=== PATIENT | male | born 1970 | race Caucasian/White ===

== ENCOUNTER → 2024-07-01 19:00 | Outpatient (BNV) | payer OTHER, SELFPAY | PROVIDERS: PCP Family Medicine; Visit Provider Psychiatry & Neurology Neurology | DX: R06.83 Snoring (principal) | CPT/HCPCS: 95810 ==

== ENCOUNTER → 2024-07-01 20:30 | Outpatient (REF) | payer OTHER, SELFPAY | LOC: HO.SL 20:30 | PROVIDERS: PCP Family Medicine; Visit Provider Internal Medicine Endocrinology, Diabetes & Metabolism | DX: R06.83 Snoring (principal) | CPT/HCPCS: 95810 ==

== ENCOUNTER 2024-12-27 11:56 | Inpatient (IN) | payer OTHER, SELFPAY ==
[2024-12-27] VITALS (7 sets, daily range): BP systolic 108–134; BP diastolic 70–81; PULSE 22–108; RESP 18–23; TEMP 36.8; O2SAT 94–98; BMI 30.9
--- NOTE | ~2024-12-27 | CT_ITS ---
CLINICAL HISTORY: periumbilical RLQ pain, VOM DIARRHEA CT ABDOMEN AND PELVIS WITHOUT CONTRAST Comparison: None Findings: Atelectatic changes. No basilar consolidation or pleural effusion. No hydronephrosis or obstructing calculus. Multiple bilateral intrarenal calculi measure up to 6 mm on the right and 2 mm on the left. No acute abnormalities in the remaining unenhanced solid organs, gallbladder or abdominal aorta. No bowel obstruction, pneumoperitoneum, or pneumatosis. Mild fluid distention of multiple small bowel loops with no abrupt transition point. No ascites or significant mesenteric edema. Multiple diverticula in the descending colon and sigmoid with no significant paracolic edema. There are sigmoid anastomotic sutures. The appendix is identified. No acute appendicitis. Small fat containing umbilical and bilateral inguinal hernias. Prostatic calcifications. Mild perivesical edema. No acute fracture. IMPRESSION: 1. Small bowel ileus pattern. No obstruction or ascites. 2. No acute appendicitis. 3. No acute obstructive uropathy. Nonobstructing bilateral nephrolithiasis, right greater than left. 4. Diverticulosis coli with no evidence for acute diverticulitis. 5. Mild localized perivesical edema for which the possibility of mild/early cystitis is raised. Recommend clinical correlation. This document has been electronically signed by: Radhika Peña DO on 12/27/2024 14:48:28
--- NOTE | ~2024-12-27 | US_ITS ---
CLINICAL HISTORY: RUQ pain, N V D US ABDOMEN LIMITED Comparison: CT/NV/SR - CT ABDOMEN PELVIS WO IV CON - 12/27/24 13:21 EDT Findings: The pancreas is obscured by bowel gas precluding evaluation. No measurable hepatic lesion. There is no intrahepatic bile duct dilatation. Common bile duct measures 4.5 mm. The gallbladder is normal. There is no sonographic Martinez sign. The main portal vein is antegrade. No ascites. IMPRESSION: 1. No cholelithiasis or acute cholecystitis. 2. No significant biliary ductal dilatation. This document has been electronically signed by: Radhika Peña DO on 12/27/2024 16:07:18
--- NOTE | 2024-12-27 12:19 | ED_ITS ---
HPI - General Adult General Chief complaint: Abdominal Pain Stated complaint: vomitting Time Seen by Provider: 12/27/24 12:42 Source: patient Mode of arrival: ambulatory Limitations: no limitations History of Present Illness ED Provider: ZOE FLOR PA-C HPI narrative: 54-year-old male with PMHX significant for diverticulitis w/ abscess s/p colectomy in 2018 at [facility] presents to the ED today for evaluation of nausea, vomiting, diarrhea, and periumbilical abdominal cramping which began around 0345 this morning. He reports eating a turkey dinner at a restaurant last night with his partner. They both had different meals. He states that while eating his dinner, he began to feel unwell with abdominal cramps. He awoke around 0345 with further cramping. Reports approx 6 episodes of nonbloody vomiting and diarrhea. His partner denies any similar symptoms. Denies recent abx. He admits to recent trip to [facility]. He returned on 12/17/24 (11 days ago). Reports drinking the water while he was there. [place] ill towards the end of his trip however that shortly resolved. Denies chest pain, sob, palpitations, hemoptysis, calf pain/swelling. He tells me he has no other medical conditions. Denies taking any medications on a daily basis. Related Data Allergies Allergy/AdvReac Type Severity Reaction Status Date / Time Iodinated Contrast Media Allergy Anaphylaxis Verified 12/27/24 12:17 [Contrast Dye] meperidine [From Demerol] Allergy Vomiting Verified 12/27/24 12:17 Review of Systems 2 Review of Systems: Constitutional: No fever, chills, fatigue, night sweats, weight changes ENT/Mouth: No ear pain, hearing loss, nasal congestion, sinus pain, rhinorrhea, sore throat Eyes: No eye pain, swelling, redness, vision changes, discharge Cardio: No chest pain, palpitations, COP[place], orthopnea, peripheral edema Pulm: No SOB, cough, sputum, wheezing, dyspnea, hemoptysis GI: No hematemesis, constipation, hematochezia, melena, +N/V/D, +abd cramping : No irregular bleeding, dysuria, frequency, urgency, hesitancy, hematuria, flank pain, urinary flow changes, urinary incontinence or retention MSK: No back pain, neck pain, joint pain, myalgias Skin: No lesions, rashes Neuro: No weakness, numbness, paresthesias, LOC, dizziness, headache Psych: No anxiety/panic, depression, SI/HI, AH/VH All other systems reviewed and are negative. [facility] Past Medical History Attestation statement: The following information was validated with the patient. Source: old records reviewed and nursing notes reviewed Social History Social History Smoked in Last 30 Days: No Use of substances other than those prescribed or required for medical reasons: No Advance Directives: No Advance Directives Information Provided: Yes Do you have a plan to hurt others: No Plan Physical Exam ED Vital Signs: Vital Signs - 24 hr 12/27/24 12:14 12/27/24 12:47 12/27/24 13:07 Temperature 98.2 F Pulse Rate 108 H 22 L Respiratory Rate 20 18 20 Blood Pressure 134/77 122/81 Pulse Oximetry 97 95 Oxygen Delivery Method Room Air Room Air 12/27/24 15:45 12/27/24 16:07 12/27/24 16:23 Temperature Pulse Rate 102 H 105 H 102 H Respiratory Rate 23 H 19 20 Blood Pressure 112/73 108/72 122/70 Pulse Oximetry 94 Oxygen Delivery Method Room Air 12/27/24 17:26 Temperature Pulse Rate 85 Respiratory Rate 18 Blood Pressure 122/73 Pulse Oximetry 98 Oxygen Delivery Method Room Air BMI result Body Mass Index 30.9 tachycardic, afebrile General: Well appearing, in no acute distress. Skin: Warm, dry, intact. No rashes or lesions. Head: Normocephalic, atraumatic. EENT: Hearing is intact b/l. Conjunctiva clear. PERRLA. EOM intact. Moist mucous membranes.? Cardiac: Chest wall symmetric. RRR Lungs: Normal respiratory effort without accessory muscle use. CTA bilaterally. Abdomen: Soft, nondistended, diffusely tender to palpation without rebound or guarding. Normoactive bowel sounds x4. No CVAT bilaterally. Back: No midline spinous or paraspinal tenderness. No step off deformity. Ext: Upper and lower extremities atraumatic, without tenderness, deformity, swelling or erythema Neuro: AOx3. Normal speech. Ambulating with steady gait. Course Course Course Narrative: RME: 54 yold male presens to the ED for abdominal pain, nausea, diarrhea, and vomitting since last night. Patient states going out to least last night and states other family members having similiar symptoms. labs ordered Reevaluation(s) Reevaluation #1: 0021 -- CBC with leukocytosis to 21.5 with left shift. H&H stable. Chemistry without acute electrolyte abnormality requiring intervention. No RITCHIE. Random glucose 205. total bili elevated to 1.3. liver enzymes wnl. Negative COVID, flu, RSV. > given elevated white count, tachycardia and concern for infection - sepsis protocol initiated. lactic/blood cultres ordered. broad spectrum zosyn ordered. IVF running. > patient has allergy to contrast dye - anaphylactic. will order dry CT a/p to assess for intra-abdominal pathology. > medicated w/ morphine and zofran 1426 -- received critical lactic of 2.3. patient not on metformin. treated with 2 L of IV fluids. does not meet criteria for bolus. > imaging pending. 1700 -- urinalysis without infection. CTA/P showing small bowel ileus pattern without obstruction or ascites. No acute appendicitis. Bilateral nephrolithiasis, nonobstructing. Diverticulosis coli without evidence of acute diverticulitis. Mild localized. Vesicular edema, cystitis unlikely given negative urinalysis. Imaging limited due to lack of contrast. RUQ abd ultrasound unremarkable. no evidence of acute lalitha. > given elevated white count and symptoms, plan to admit for continued IV antibiotics. discussed w/ hospitalist Dr. Meza. patient agreeable. admisson pending. stool cultures pending. Medications Administered Discontinued Medications Generic Name Dose Route Start Last Admin Trade Name Freq PRN Reason Stop Dose Admin Sodium Chloride 1,000 mls @ 999 mls/hr 12/27/24 12:45 12/27/24 14:06 Ns IV 12/27/24 13:45 Infused .Q1H1M ANTONIO Infusion Piperacillin Sod/Tazobactam 50 mls @ 100 mls/hr 12/27/24 13:37 12/27/24 14:33 Sod 3.375 gm/ Sodium Chloride IV 12/27/24 14:06 Infused ONCE ONE Infusion Sodium Chloride 1,000 mls @ 999 mls/hr 12/27/24 14:00 12/27/24 16:04 Ns IV 12/27/24 15:00 Infused .Q1H1M ANTONIO Infusion Morphine Sulfate 4 mg 12/27/24 12:57 12/27/24 13:07 Morphine Sulfate 4 Mg/Ml Cartridge IVPUSH 12/27/24 12:58 4 mg ONCE ONE Administration Protocol Ondansetron HCl 4 mg 12/27/24 12:57 12/27/24 13:07 Ondansetron Hcl 4 Mg/2 Ml Vial IVPUSH 12/27/24 12:58 4 mg ONCE ONE Administration Medical Decision Making Medical Decision Making [facility] Narrative: 54-year-old male with PMHX significant for diverticulitis w/ abscess s/p colectomy in 2018 at [facility] presents to the ED today for evaluation of nausea, vomiting, diarrhea, and periumbilical abdominal cramping which began around 0345 this morning. patient initially tachycardic to 108. HR now normal.on exam, abdomen is soft, nondistended, diffusely tender to palpation without rebound or guarding. Normoactive bowel sounds x4. No CVAT bilaterally. Differential diagnosis includes anemia, electrolyte abnormality, dehydration, viral syndrome, biliary colic, renal colic, nephrolithiasis, gastroenteritis, colitis, diverticulosis, diverticulitis. Abdominal exam without peritoneal signs. No evidence of acute abdomen at this time. Well appearing. Moderate suspicion for acute hepatobiliary disease (including acute cholecystitis). Less likely to represent acute pancreatitis, PUD (including perforation), acute infectious processes (pneumonia, hepatitis, pyelonephritis), atypical appendicitis, vascular catastrophe, bowel obstruction or viscus perforation. Plan: labs, UA, stool studies, viral swabs, pain control, CT A/P, serial reassessment Differential Diagnosis Differential Diagnoses: The differential diagnosis associated with the presentation includes as above. Admission/Observation not indicated. Consult Healthcare Provider Management of the patient was discussed with: Hospitalist (dr. meza) Lab Data [facility] Lab Attestation statement: I reviewed the patient's lab results. as above. 12/27/24 12:32 12/27/24 12:32 Labs: Lab Results 12/27/24 12/27/24 12/27/24 Range/Units 12:32 13:48 14:06 WBC 21.5 H (4.8-10.8) X10*3/uL RBC 5.84 H (4.60-5.80) X10*6/uL Hgb 18.5 H (14.0-18.0) g/dl Hct 51.2 (42.0-52.0) % MCV 87.7 (80.0-98.0) fL MCH 31.7 (27.0-33.0) pg MCHC 36.1 H (31.0-36.0) g/dl RDW 13.0 (11.0-16.0) % Plt Count 215 (160-400) X10*3/uL MPV 10.2 (9.4-12.4) fL Immature Gran % (Auto) 0.5 H (0.0-0.4) % Neut % (Auto) 91.1 H (45-73) % Lymph % (Auto) 2.0 L (20-40) % [place] % (Auto) 6.1 (2-11) % Eos % (Auto) 0.1 (0-4) % Baso % (Auto) 0.2 (0-2) % Lymph # (Auto) 0.4 L (1.2-4.9) X10*3/uL [place]verse # (Auto) 1.3 H (0.1-1.2) X10*3/uL Eos # (Auto) 0.0 (0.0-0.4) X10*3/uL Baso # (Auto) 0.1 (0.0-0.2) X10*3/uL Abs Immat Gran (auto) 0.11 H (0.00-0.03) X10*3/uL Absolute Neuts (auto) 19.6 H (2.0-8.3) x10*3/uL Absolute Nucleated RBC 0.000 (0.0-0.012) X10*3/uL Nucleated RBC % (auto) 0.0 (0.0-0.2) /100WBC Smear Tech's Comments VERIFIED Sodium 141 (135-145) mmol/L Potassium 4.5 (3.3-5.1) mmol/L Chloride 105 (96-108) mmol/L Carbon Dioxide 23 (22-29) mmol/L Anion Gap 18 (12-20) BUN 15 (9-16) mg/dL Creatinine 1.30 (0.5-1.4) mg/dL Estim Creat Clear Calc 70.8 Estimated GFR 58 Random Glucose 205 H (60-115) mg/dL Lactic Acid 2.3 H* (0.5-2.0) mmol/L Lactic Acid F/U @ 2Hr (0.5-2.0) mmol/L Calcium 9.9 (8.4-10.2) mg/dL Total Bilirubin 1.3 H (0.0-1.0) mg/dL Direct Bilirubin 0.5 (0.0-0.5) mg/dL AST 36 (5-37) U/L ALT 59 H (0-40) U/L Alkaline Phosphatase 82 (39-117) U/L Total Protein 8.3 H (6.5-8.0) g/dL Albumin 4.9 (3.5-5.0) g/dL Lipase 21 (8-78) U/L Urine Color Urine Appearance Urine pH (5.0-9.0) Ur Specific [place] (1.005-1.025) Urine Protein (Neg-Trace) mg/dL Urine Glucose (UA) (Negative) mg/dL Urine Ketones (Negative) mg/dL Urine Blood (Negative) Urine Nitrite (Negative) Ur Leukocyte Esterase (Negative) Urine Opiates Screen (Not Detect) Ur Buprenorphine Scrn (Not Detect) ng/mL Ur Oxycodone Screen (Not Detect) ng/mL Urine Methadone Screen (Not Detect) ng/mL Urine Fentanyl Screen (Not Detect) Ur Barbiturates Screen (Not Detect) Ur Phencyclidine Scrn (Not Detect) Ur Amphetamines Screen (Not Detect) U Benzodiazepines Scrn (Not Detect) Urine Cocaine Screen (Not Detect) U Marijuana (THC) Screen (Not Detect) Influenza Type A (PCR) NEGATIVE (Negative) Influenza Type B (PCR) NEGATIVE (Negative) RSV RNA Qual (PCR) NEGATIVE (Negative) SARS-CoV-2 RNA (RT-PCR) NEGATIVE (Negative) 12/27/24 12/27/24 Range/Units 15:47 16:08 WBC (4.8-10.8) X10*3/uL RBC (4.60-5.80) X10*6/uL Hgb (14.0-18.0) g/dl Hct (42.0-52.0) % MCV (80.0-98.0) fL MCH (27.0-33.0) pg MCHC (31.0-36.0) g/dl RDW (11.0-16.0) % Plt Count (160-400) X10*3/uL MPV (9.4-12.4) fL Immature Gran % (Auto) (0.0-0.4) % Neut % (Auto) (45-73) % Lymph % (Auto) (20-40) % Traverse % (Auto) (2-11) % Eos % (Auto) (0-4) % Baso % (Auto) (0-2) % Lymph # (Auto) (1.2-4.9) X10*3/uL [place]verse # (Auto) (0.1-1.2) X10*3/uL Eos # (Auto) (0.0-0.4) X10*3/uL Baso # (Auto) (0.0-0.2) X10*3/uL Abs Immat Gran (auto) (0.00-0.03) X10*3/uL Absolute Neuts (auto) (2.0-8.3) x10*3/uL Absolute Nucleated RBC (0.0-0.012) X10*3/uL Nucleated RBC % (auto) (0.0-0.2) /100WBC Smear Tech's Comments Sodium (135-145) mmol/L Potassium (3.3-5.1) mmol/L Chloride (96-108) mmol/L Carbon Dioxide (22-29) mmol/L Anion Gap (12-20) BUN (9-16) mg/dL Creatinine (0.5-1.4) mg/dL Estim Creat Clear Calc Estimated GFR Random Glucose (60-115) mg/dL Lactic Acid (0.5-2.0) mmol/L Lactic Acid F/U @ 2Hr 2.3 H* (0.5-2.0) mmol/L Calcium (8.4-10.2) mg/dL Total Bilirubin (0.0-1.0) mg/dL Direct Bilirubin (0.0-0.5) mg/dL AST (5-37) U/L ALT (0-40) U/L Alkaline Phosphatase (39-117) U/L Total Protein (6.5-8.0) g/dL Albumin (3.5-5.0) g/dL Lipase (8-78) U/L Urine Color Yellow Urine Appearance Clear Urine pH 8.0 (5.0-9.0) Ur Specific [place] 1.025 (1.005-1.025) Urine Protein Trace (Neg-Trace) mg/dL Urine Glucose (UA) Negative (Negative) mg/dL Urine Ketones 15 (Negative) mg/dL Urine Blood Negative (Negative) Urine Nitrite Negative (Negative) Ur Leukocyte Esterase Negative (Negative) Urine Opiates Screen POSITIVE H (Not Detect) Ur Buprenorphine Scrn Not Detected (Not Detect) ng/mL Ur Oxycodone Screen Not Detected (Not Detect) ng/mL Urine Methadone Screen Not Detected (Not Detect) ng/mL Urine Fentanyl Screen Not Detected (Not Detect) Ur Barbiturates Screen Not Detected (Not Detect) Ur Phencyclidine Scrn Not Detected (Not Detect) Ur Amphetamines Screen Not Detected (Not Detect) U Benzodiazepines Scrn Not Detected (Not Detect) Urine Cocaine Screen Not Detected (Not Detect) U Marijuana (THC) Screen Not Detected (Not Detect) Influenza Type A (PCR) (Negative) Influenza Type B (PCR) (Negative) RSV RNA Qual (PCR) (Negative) SARS-CoV-2 RNA (RT-PCR) (Negative) Independent Interpretation I performed an independent interpretation of an: CT Scan Interpretation: CT A/P without bowel obstruction RUQ abd ultrasound without gall stones Radiology Impression Discussion of test interpretation with radiology: I have reviewed the radiologist's reading. Radiologist Impression: Date of Service: 12/27/24 Procedure(s): US abdomen limited Accession Number(s): [id number] cc: MAI FULLER MD; Zoe Flor~ CLINICAL HISTORY: RUQ pain, N V D US ABDOMEN LIMITED Comparison: CT/NV/SR - CT ABDOMEN PELVIS WO IV CON - 12/27/24 13:21 EDT Findings: The pancreas is obscured by bowel gas precluding evaluation. No measurable hepatic lesion. There is no intrahepatic bile duct dilatation. Common bile duct measures 4.5 mm. The gallbladder is normal. There is no sonographic Martinez sign. The main portal vein is antegrade. No ascites. IMPRESSION: 1. No cholelithiasis or acute cholecystitis. 2. No significant biliary ductal dilatation. This document has been electronically signed by: Radhika Peña DO on 12/27/2024 16:07:18 Procedure(s): CT abdomen pelvis wo IV con Accession Number(s): [id number] cc: MAI FULLER MD; Zoe Flor~ Report Number: [id number]: Total DLP = 607.00 mGy-cm CLINICAL HISTORY: periumbilical RLQ pain, VOM DIARRHEA CT ABDOMEN AND PELVIS WITHOUT CONTRAST Comparison: None Findings: Atelectatic changes. No basilar consolidation or pleural effusion. No hydronephrosis or obstructing calculus. Multiple bilateral intrarenal calculi measure up to 6 mm on the right and 2 mm on the left. No acute abnormalities in the remaining unenhanced solid organs, gallbladder or abdominal aorta. No bowel obstruction, pneumoperitoneum, or pneumatosis. Mild fluid distention of multiple small bowel loops with no abrupt transition point. No ascites or significant mesenteric edema. Multiple diverticula in the descending colon and sigmoid with no significant paracolic edema. There are sigmoid anastomotic sutures. The appendix is identified. No acute appendicitis. Small fat containing umbilical and bilateral inguinal hernias. Prostatic calcifications. Mild perivesical edema. No acute fracture. IMPRESSION: 1. Small bowel ileus pattern. No obstruction or ascites. 2. No acute appendicitis. 3. No acute obstructive uropathy. Nonobstructing bilateral nephrolithiasis, right greater than left. 4. Diverticulosis coli with no evidence for acute diverticulitis. 5. Mild localized perivesical edema for which the possibility of mild/early cystitis is raised. Recommend clinical correlation. This document has been electronically signed by: Radhika Peña DO on 12/27/2024 14:48:28 Independent Historian Clinical information obtained from an independent historian. History obtained from or confirmed by: Spouse Prescription Management I considered prescription management with: Pain Medication and Antibiotic Social Determinants Patient?s care significantly limited by Social Determinants of Health including: Other Social Determinant of Health Critical Care Time Critical Care Time Critical Care Time: Yes Total Critical Care Time: 35 Attestation: Critical care time in the amount of 35 minutes has been provided to the patient in terms of direct patient care, frequent reevaluation on IV morphine, consultation with hospitalist, review and interpretation of medical data and results, and management of potentially life-threatening conditions. This is all outside of any medical procedures. Discharge Plan Discharge Clinical Impression: Colitis, Nausea & vomiting Patient Disposition: Admitted As Inpatient Print Language: Cymraes
[2024-12-27 12:38] LABS: Basophils Absolute Auto 0.1 X10*3/uL (0.0-0.2); Basophils Percent Auto 0.2 % (0-2); Eosinophils Percent Auto 0.1 % (0-4); Hematocrit 51.2 % (42.0-52.0); Hemoglobin 18.5 g/dl (14.0-18.0); Imm Gran Abs Auto 0.11 X10*3/uL (0.00-0.03); Imm Gran Pct Auto 0.5 % (0.0-0.4); Lymphocytes Absolute Auto 0.4 X10*3/uL (1.2-4.9); MANUAL DIFF FLAG SCAN; Mean Corpuscular HGB Conc 36.1 g/dl (31.0-36.0); Mean Corpuscular Hemoglobin 31.7 pg (27.0-33.0); Mean Corpuscular Volume 87.7 fL (80.0-98.0); Mean Platelet Volume 10.2 fL (9.4-12.4); Monocytes Absolute Auto 1.3 X10*3/uL (0.1-1.2); Monocytes Percent Auto 6.1 % (2-11); Neutrophils Absolute Auto 19.6 x10*3/uL (2.0-8.3); Neutrophils Percent Auto 91.1 % (45-73); Platelet Count 215 X10*3/uL (160-400); Red Blood Count 5.84 X10*6/uL (4.60-5.80); SCAN SMEAR FLAG 1; White Blood Count 21.5 X10*3/uL (4.8-10.8)
[2024-12-27] MEDS: 0.9 % Sodium Chloride 1,000 ML 999 ML IV ×2 (12:46→14:03)
[2024-12-27 12:52] LABS: Alanine Aminotransferase 59 U/L (0-40); Albumin Level 4.9 g/dL (3.5-5.0); Alkaline Phosphatase 82 U/L (39-117); Anion Gap 18 (12-20); Aspartate Amino Transferase 36 U/L (5-37); Bilirubin Total 1.3 mg/dL (0.0-1.0); Blood Urea Nitrogen 15 mg/dL (9-16); Calcium 9.9 mg/dL (8.4-10.2); Carbon Dioxide 23 mmol/L (22-29); Chloride 105 mmol/L (96-108); Creatinine Clr Calc Pharmacy 70.8; Estimated Glomerular Filt Rate 58; Glucose Random 205 mg/dL (60-115); Lipase 21 U/L (8-78); Potassium 4.5 mmol/L (3.3-5.1); Sodium 141 mmol/L (135-145); Total Protein 8.3 g/dL (6.5-8.0)
[2024-12-27 13:04] LABS: SLIDE REVIEW VERIFIED
[2024-12-27] MEDS: Morphine Sulfate 4 MG/ML CARTRIDGE IVPUSH (13:07)
[2024-12-27] MEDS: ondansetron HCL 4 MG/2 ML VIAL IVPUSH (13:07)
[2024-12-27 14:01] LABS: Bilirubin Direct 0.5 mg/dL (0.0-0.5)
[2024-12-27] MEDS: Piperacillin Sodium/Tazobactam 3.375 GM in 0.9 % Sodium Chloride 50 ML IV ×2 (14:03→21:06)
[2024-12-27 14:18] LABS: Lactic Acid 2.3 mmol/L (0.5-2.0)
--- NOTE | 2024-12-27 14:25 | PC.NURSE ---
Pt comes to ED today for severe n/v/d starting this early this AM. Pt is A&Ox3, VSS, afebrile. Skin is warm and dry Breaths and speech are even and unlabored. Sepsis protocol called @ 1337 1st set of blood cultures and lactic acid obtained without complication. 2nd set of culture difficult to acquire: 3 failed straight sticks d/t clotting at stick site. This RN was required to place new/additional IV access and obtained 2nd set of culture. IV Abx hung within 30 minutes per protocol. Per ED provider, Pts lactic does not meet sepsis protocol criteria for IVF bolus however 1L IVF ordered at 1400 (prior to lactic results) and hung as ordered. Will obtain 2 BPs following completion of IVF.
[2024-12-27 14:49] LABS: Influenza A PCR NEGATIVE (Negative); Influenza B PCR NEGATIVE (Negative); Resp Syncy Virus RNA Qual PCR NEGATIVE (Negative); SARS COV2 PCR INHOUSE NEGATIVE (Negative)
[2024-12-27 15:57] LABS: Reflex Lactate? Lactic Acid Added
[2024-12-27 16:07] LABS: Appearance Urine Clear; Color Urine Yellow; Glucose Urine UA Negative (Negative); Leukocyte Esterase Urine Negative (Negative); Nitrite Urine Negative (Negative); Specific Gravity - Urine 1.025 (1.005-1.025); Urine Blood Negative (Negative); Urine Ketones 15 mg/dL (Negative); Urine Protein Trace mg/dL (Neg-Trace)
[2024-12-27 16:18] LABS: Amphetamine Screen Urine Not Detected (Not Detect); Barbiturates, Urine Not Detected (Not Detect); Benzodiazepines Screen Urine Not Detected (Not Detect); Buprenorphine Scr Not Detected (Not Detect); Cannabinoid Screen Urine Not Detected (Not Detect); Cocaine Screen Urine Not Detected (Not Detect); Fentanyl, urine Not Detected (Not Detect); Methadone Screen, Urine Not Detected (Not Detect); Opiate Screen Urine POSITIVE (Not Detect); Oxycodone Screen Urine Not Detected (Not Detect); Phencyclidine Screen Urine Not Detected (Not Detect)
--- NOTE | 2024-12-27 16:24 | PC.NURSE ---
Sepsis worksheet submitted to [employer].
[2024-12-27 16:34] LABS: ~Lactic Acid-LAB USE ONLY 2.3 mmol/L (0.5-2.0)
--- NOTE | 2024-12-27 17:19 | P.HPHOSP_ITS ---
History of Present Illness Date of Service: 12/27/24 Attending physician on admission: Marcelino Meza Chief Complaint: N/V/D/abdominal pain Pt is a 54-year-old male with a PMH significant for diverticulitis with abscess s/p colectomy in 2018 not on home meds who presents to the ED with?nausea, vomiting, diarrhea, and abdominal pain since early this morning. Pt reports was awoken from sleep at approximately 03:00 and had intractable nausea, vomiting, and diarrhea. At sharp and stabbing abdominal pain mostly across the top in a band. Pt attempted to drink fluids, but could not keep anything down. Reports went out to last night in order to turkey dinner. During dinner pt notes stomach began feeling crampy and upset. Recently returned 10 days ago from a trip to the [place] where he drank the water. On his last day had mild diarrhea and his stomach was upset on the plane ride home, but symptoms since resolved without any intervention. Not recently IV antibiotics. States [id number] had diarrhea a few days ago, but pt reports only minimal contact with her. Denies chest pain/pressure, palpitations. Some chills, but no fever. Denies shortness or breath, difficulty breathing, or cough. No hemoptysis, hematemesis, hematochezia, In the ED pt was tachycardic up to 108 and tachypneic up to 23. Labs were significant for leukocytosis 21.5, initial lactic acid 2.3 with repeat 2.3, T bili 1.3, and ALT 59. Stable H&H. No significant electrolyte abnormalities. Creatinine WNL at 1.30 (baseline unknown). UA negative for UTI. Tox screen positive for opiates. Tested negative for flu COVID, RSV. CT of abdomen/pelvis found small bowel ileus pattern without obstruction or ascites. Abdominal ultrasound negative for cholelithiasis or acute cholecystitis, and no significant biliary ductal dilation. Pt was treated with IVF, morphine, ondansetron, and Zosyn. Pt will be admitted to the hospital for treatment and further evaluation of possible colitis meeting SIRS criteria. Review of Systems 2 Review of Systems: Negative except for that which is stated in the HPI. [facility] Medical History Diverticulosis Diverticulitis Surgical History S/P colectomy Social History Smoked in Last 30 Days: No Use of substances other than those prescribed or required for medical reasons: No Advance Directives: No Advance Directives Information Provided: Yes Do you have a plan to hurt others: No Plan Meds Allergies Allergy/AdvReac Type Severity Reaction Status Date / Time Iodinated Contrast Media Allergy Anaphylaxis Verified 12/27/24 12:17 [Contrast Dye] meperidine [From Demerol] Allergy Vomiting Verified 12/27/24 12:17 Physical Exam 2 Vital Signs and Narrative: Vital Signs: Last Vital Signs Temp 98.2 F 12/27/24 12:14 Pulse 102 H 12/27/24 16:23 Resp 20 12/27/24 16:23 BP 122/70 12/27/24 16:23 Pulse Ox 94 12/27/24 15:45 O2 Del Method Room Air 12/27/24 15:45 BMI result Body Mass Index 30.9 General: AOx3, no acute distress Resp: CTA bilaterally CVS: S1, S2, RRR GI: +BS, NT, no distention Skin: Warm, dry Neuro: Cranial nerves II-XII grossly intact bilaterally. Motor grossly intact bilaterally Extremities: No edema Psych: Appropriate affect Results Labs 12/27/24 12:32 12/27/24 12:32 Labs: Laboratory Results - last 24 hr 12/27/24 12/27/24 12/27/24 12:32 13:48 14:06 MCV 87.7 MCH 31.7 MCHC 36.1 H RDW 13.0 Plt Count 215 MPV 10.2 Immature Gran % (Auto) 0.5 H Neut % (Auto) 91.1 H Lymph % (Auto) 2.0 L Banks % (Auto) 6.1 Eos % (Auto) 0.1 Baso % (Auto) 0.2 Lymph # (Auto) 0.4 L Banks # (Auto) 1.3 H Eos # (Auto) 0.0 Baso # (Auto) 0.1 Abs Immat Gran (auto) 0.11 H Absolute Neuts (auto) 19.6 H Absolute Nucleated RBC 0.000 Nucleated RBC % (auto) 0.0 Smear Tech's Comments VERIFIED Anion Gap 18 Estim Creat Clear Calc 70.8 Estimated GFR 58 Random Glucose 205 H Lactic Acid 2.3 H* Lactic Acid F/U @ 2Hr Calcium 9.9 Total Bilirubin 1.3 H Direct Bilirubin 0.5 AST 36 ALT 59 H Alkaline Phosphatase 82 Total Protein 8.3 H Albumin 4.9 Lipase 21 Urine Color Urine Appearance Urine pH Ur Specific [place] Urine Protein Urine Glucose (UA) Urine Ketones Urine Blood Urine Nitrite Ur Leukocyte Esterase Urine Opiates Screen Ur Buprenorphine Scrn Ur Oxycodone Screen Urine Methadone Screen Urine Fentanyl Screen Ur Barbiturates Screen Ur Phencyclidine Scrn Ur Amphetamines Screen U Benzodiazepines Scrn Urine Cocaine Screen U Marijuana (THC) Screen Influenza Type A (PCR) NEGATIVE Influenza Type B (PCR) NEGATIVE RSV RNA Qual (PCR) NEGATIVE SARS-CoV-2 RNA (RT-PCR) NEGATIVE 12/27/24 12/27/24 15:47 16:08 MCV MCH MCHC RDW Plt Count MPV Immature Gran % (Auto) Neut % (Auto) Lymph % (Auto) Banks % (Auto) Eos % (Auto) Baso % (Auto) Lymph # (Auto) Banks # (Auto) Eos # (Auto) Baso # (Auto) Abs Immat Gran (auto) Absolute Neuts (auto) Absolute Nucleated RBC Nucleated RBC % (auto) Smear Tech's Comments Anion Gap Estim Creat Clear Calc Estimated GFR Random Glucose Lactic Acid Lactic Acid F/U @ 2Hr 2.3 H* Calcium Total Bilirubin Direct Bilirubin AST ALT Alkaline Phosphatase Total Protein Albumin Lipase Urine Color Yellow Urine Appearance Clear Urine pH 8.0 Ur Specific [place] 1.025 Urine Protein Trace Urine Glucose (UA) Negative Urine Ketones 15 Urine Blood Negative Urine Nitrite Negative Ur Leukocyte Esterase Negative Urine Opiates Screen POSITIVE H Ur Buprenorphine Scrn Not Detected Ur Oxycodone Screen Not Detected Urine Methadone Screen Not Detected Urine Fentanyl Screen Not Detected Ur Barbiturates Screen Not Detected Ur Phencyclidine Scrn Not Detected Ur Amphetamines Screen Not Detected U Benzodiazepines Scrn Not Detected Urine Cocaine Screen Not Detected U Marijuana (THC) Screen Not Detected Influenza Type A (PCR) Influenza Type B (PCR) RSV RNA Qual (PCR) SARS-CoV-2 RNA (RT-PCR) Assessment and Plan (1) Nausea & vomiting: Status: Acute Plan Pt is a 54-year-old male with a PMH significant for diverticulitis with abscess s/p colectomy in 2018 not on home meds who presents to the ED with?nausea, vomiting, diarrhea, and abdominal pain since early this morning. Pt will be admitted to the hospital for treatment and further evaluation of possible colitis meeting SIRS criteria. Question of colitis Pt with N/V/D and diffuse abdominal pain since early this morning CT showing small bowel ileus pattern without obstruction, appendicitis, or diverticulitis Concern for colitis Unclear etiology: Ate out last night vs travel to [facility] 10 days ago vs sick contact with diarrhea Meets SIRS criteria: Tachycardia, tachypnea, and leukocytosis; lactic acid elevated at 2.3 with repeat 2.3 Pt received IVF and started on broad-spectrum antibiotics in the ED Will empirically treat with Zosyn, started 12/27/2024 Analgesics, antiemetics, famotidine Check C diff and GI panel Follow blood cultures Clear liquid diet for now, advance as tolerated Full Code Attending:?Dr. Meza DVT Prophylaxis: Lovenox Pt will require a hospitalization of at least two nights for treatment of?possible colitis meeting SIRS criteria that will be treated with empiric IV antibiotics, IV analgesics, and IV antiemetics. Quality Stroke Does the patient have a stroke diagnosis?: No VTE Prior VTE?: No VTE Risk Level:: Medical - moderate - high VTE Device Contraindication: Treatment Not Indicated VTE Drug Contraindication: N/A - Med Ordered
[2024-12-27 18:12] LABS: Reflex Lactate? 2 Y
[2024-12-27 18:40] LABS: CDiff Gene PCR NEGATIVE (Negative)
--- NOTE | 2024-12-27 19:13 | PC.NURSE ---
assumed care of patient at this time. report received from Cathie LIN.
--- NOTE | 2024-12-27 20:13 | PC.NURSE ---
pharmacy contacted for zosyn as there is non available in main pyxis
[2024-12-27 20:15] LABS: ~Lactic Acid-LAB USE ONLY 2.6 mmol/L (0.5-2.0)
[2024-12-27] MEDS: Famotidine 20 MG TABLET PO (21:06)
[2024-12-27] MEDS: Acetaminophen 325 MG TABLET 650 MG PO (21:06)
[2024-12-27] MEDS: Lactated Ringers 500 ML 999 ML IV (21:11)
--- NOTE | 2024-12-27 23:30 | PC.NURSE ---
pt ambulated to and from bathroom with steady gait. no apparent distress noted. pt back in stretcher now. denies any acute pain/distress. resting comfortably, call rodriguez within reach. plan of care continues.
[2024-12-28] VITALS (7 sets, daily range): BP systolic 103–131; BP diastolic 54–74; PULSE 78–93; RESP 16–18; TEMP 36.4–38.2; O2SAT 92–95
[2024-12-28] MEDS: Ketorolac Tromethamine 30 MG/ML VIAL IVPUSH (01:53)
--- NOTE | 2024-12-28 01:58 | PC.NURSE ---
pt noted to be slightly febrile at this time, temp 100.7, also c/o headache still. no relief from tylenol administration. BRI Bonilla made aware, IV toradol administered per dec. pt resting comfortably.
[2024-12-28] MEDS: Piperacillin Sodium/Tazobactam 3.375 GM in 0.9 % Sodium Chloride 50 ML IV ×3 (03:34→14:41)
[2024-12-28 07:25] LABS: Hematocrit 47.2 % (42.0-52.0); Hemoglobin 15.9 g/dl (14.0-18.0); Mean Corpuscular HGB Conc 33.7 g/dl (31.0-36.0); Mean Corpuscular Hemoglobin 30.6 pg (27.0-33.0); Mean Corpuscular Volume 90.9 fL (80.0-98.0); Mean Platelet Volume 10.5 fL (9.4-12.4); Platelet Count 146 X10*3/uL (160-400); Red Blood Count 5.19 X10*6/uL (4.60-5.80); Red Cell Distribution Width 13.2 % (11.0-16.0); White Blood Count 12.6 X10*3/uL (4.8-10.8)
[2024-12-28 07:29] LABS: Anion Gap 14 (12-20); Blood Urea Nitrogen 15 mg/dL (9-16); Calcium 8.4 mg/dL (8.4-10.2); Carbon Dioxide 21 mmol/L (22-29); Chloride 109 mmol/L (96-108); Creatinine Clr Calc Pharmacy 66.7; Estimated Glomerular Filt Rate 54; Glucose Random 119 mg/dL (60-115); Potassium 3.9 mmol/L (3.3-5.1); Sodium 140 mmol/L (135-145)
[2024-12-28] MEDS: Famotidine 20 MG TABLET PO ×2 (07:46→20:43)
[2024-12-28] MEDS: 0.9 % Sodium Chloride Flush 3 ML SYRINGE IVFLUSH ×3 (07:46→20:43)
[2024-12-28 11:12] LABS: Adenovirus F 40/41 Not Detected (Not Detect.); Astrovirus Not Detected (Not Detect.); Campylobacter Not Detected (Not Detect.); Cryptosporidium Not Detected (Not Detect.); Cyclospora cayetanensis Not Detected (Not Detect.); E. coli EAEC Detected (Not Detect.); E. coli EPEC Not Detected (Not Detect.); E. coli ETEC Not Detected (Not Detect.); E. coli STEC Not Detected (Not Detect.); Entamoeba histolytica Not Detected (Not Detect.); Giardia lamblia Not Detected (Not Detect.); Plesiomonas shigelloides Not Detected (Not Detect.); Rotavirus A Not Detected (Not Detect.); Salmonella Not Detected (Not Detect.); Sapovirus Not Detected (Not Detect.); Shigella sp./EIEC Not Detected (Not Detect.); Vibrio Not Detected (Not Detect.); Vibrio Cholerae Not Detected (Not Detect.); Yersinia enterocolitica Not Detected (Not Detect.)
--- NOTE | 2024-12-28 11:32 | PHA.MEDREC ---
Addendum entered by Lopez Rodriguez RPh 12/28/24 11:42: Reviewed by [facility]. Chantanx starter pack was started in December 2023, pt should be on 1mg daily, but pt states he is not consistant with this med. Original Note: Pharmacy Consult ? Medication Reconciliation Pharmacy has completed the medication reconciliation. spoke to patient to confirm med list. [facility] Patient states he is no longer taking Clotrimazole 10 mg, and HCTZ 12.5 mg. Patient confirmed Testosterone cyp 60 mg q , Varenicline 0.5 mg taper dose ( patient is on day four of treatment 1 tab BID for 4 days.
[2024-12-28 11:33] LABS: Norovirus GI/GII Detected (Not Detect.)
[2024-12-28] MEDS: Dextrose 5 % and 0.9 % NaCl 1,000 ML 80 ML IVCONT (15:38)
--- NOTE | 2024-12-28 15:41 | HO.PM.IMPN ---
Subjective Subjective Date of Service: 12/28/24 Interval History: diarrhae Review of Systems mild abd discomfort ,diarrhae somewhat improving no fevers Physical Exam Vital Signs: Vital Signs: Last Vital Signs Temp 98.4 F 12/28/24 15:21 Pulse 78 12/28/24 15:21 Resp 18 12/28/24 15:21 BP 129/66 12/28/24 15:21 Pulse Ox 93 12/28/24 15:21 O2 Del Method Room Air 12/28/24 15:21 BMI result Body Mass Index 30.9 Appearance: Alert.? Oriented X3.? cvs: rrr, [id number]. res: air entry fair. abd: soft ,mild tenderness,nd , bs present. ext pulses present , no cyanosis neuro: axo3 , nonfocal. Objective Data Active Medications Acetaminophen (Acetaminophen 325 Mg Tablet) 975 mg PO Q6H PRN PRN Reason: Pain, Mild 1-3,fever,headache Atorvastatin Calcium (Atorvastatin Calcium 40 Mg Tablet) 40 mg PO BEDTIME ON LICENSE OF [facility] Calcium Carbonate (Calcium Carbonate 750 Mg Tab.Chew) 750 mg PO Q4H PRN PRN Reason: Heartburn Famotidine (Famotidine 20 Mg Tablet) 20 mg PO BID ON LICENSE OF [facility] Last Admin: 12/28/24 07:46 Dose: 20 mg Documented By: [email or web address] Piperacillin Sod/Tazobactam (Sod 3.375 gm/ Sodium Chloride) 50 mls @ 100 mls/hr IV Q6H ON LICENSE OF [facility] Last Infusion: 12/28/24 15:37 Dose: Infused Documented By: VENECIA Dextrose/Sodium Chloride (D5ns) 1,000 mls @ 80 mls/hr IVCONT .[id number] ON LICENSE OF [facility] Ketorolac Tromethamine (Ketorolac Tromethamine 15 Mg/Ml Vial) 15 mg IVPUSH Q6H PRN PRN Reason: Pain, Severe (Pain Scale 7-10) Magnesium Hydroxide (Milk Of Magnesia 30 Ml Oral.Susp) 30 ml PO DAILY PRN PRN Reason: Constipation Melatonin (Melatonin 3 Mg Tablet) 6 mg PO BEDTIME PRN PRN Reason: Insomnia Morphine Sulfate (Morphine Sulfate 4 Mg/Ml Cartridge) 2 mg IVPUSH Q6H PRN; Protocol PRN Reason: Pain, Severe (Pain Scale 7-10) Nicotine (Nicotine 21 Mg Patch.Td24) 21 mg TRANSDERMA DAILY PRN PRN Reason: Smoking Cessation Omeprazole (Omeprazole 20 Mg Capsule.Dr) 20 mg PO DAILY@0630 ON LICENSE OF [facility] Ondansetron HCl (Ondansetron Hcl 4 Mg/2 Ml Vial) 4 mg IVPUSH Q8H PRN PRN Reason: Nausea and Vomiting Sodium Chloride (0.9 % Sodium Chloride Flush 3 Ml Syringe) 3 ml IVFLUSH QSHIFT ANTONIO Last Admin: 12/28/24 11:24 Dose: 3 ml Documented By: PERLA Labs 12/28/24 07:01 12/28/24 07:01 Labs: Laboratory Results - last 24 hr 12/27/24 12/27/24 12/27/24 15:47 16:08 17:27 MCV MCH MCHC RDW Plt Count MPV Absolute Nucleated RBC Nucleated RBC % (auto) Anion Gap Estim Creat Clear Calc Estimated GFR Random Glucose Lactic Acid F/U @ 2Hr 2.3 H* Lactic Acid F/U @ 4Hr Calcium Urine Color Yellow Urine Appearance Clear Urine pH 8.0 Ur Specific [place] 1.025 Urine Protein Trace Urine Glucose (UA) Negative Urine Ketones 15 Urine Blood Negative Urine Nitrite Negative Ur Leukocyte Esterase Negative Stl C. cayetanensis PCR Not Detected Stool Rotavirus A PCR Not Detected Stl Adenov F 40/41 PCR Not Detected Stool Astrovirus (PCR) Not Detected Stool Campylobacter PCR Not Detected Stool Cryptosporidium PCR Not Detected Stl Sh Tox Pr E STEC PCR Not Detected Stool E coli O157 PCR Not applicable Stl Enterotoxigenic E PCR Not Detected Stool EPEC (PCR) Not Detected Stool EAEC (PCR) Detected A Stl E. histolytica PCR Not Detected Stool Giardia Lamblia PCR Not Detected Stl P. shigelloides PCR Not Detected Stool Salmonella PCR Not Detected Stool Sapovirus (PCR) Not Detected Stl Shigella/EIEC PCR Not Detected St Y.enterocolitica PCR Not Detected Stool Vibrio (PCR) Not Detected Stl Vibrio cholerae PCR Not Detected Stl Norovirus GI/GII PCR Detected A Urine Opiates Screen POSITIVE H Ur Buprenorphine Scrn Not Detected Ur Oxycodone Screen Not Detected Urine Methadone Screen Not Detected Urine Fentanyl Screen Not Detected Ur Barbiturates Screen Not Detected Ur Phencyclidine Scrn Not Detected Ur Amphetamines Screen Not Detected U Benzodiazepines Scrn Not Detected Urine Cocaine Screen Not Detected U Marijuana (THC) Screen Not Detected C. difficile Tox B Gene NEGATIVE 12/27/24 12/28/24 19:54 07:01 MCV 90.9 MCH 30.6 MCHC 33.7 RDW 13.2 Plt Count 146 L D MPV 10.5 Absolute Nucleated RBC 0.000 Nucleated RBC % (auto) 0.0 Anion Gap 14 Estim Creat Clear Calc 66.7 Estimated GFR 54 Random Glucose 119 H Lactic Acid F/U @ 2Hr Lactic Acid F/U @ 4Hr 2.6 H* Calcium 8.4 D Urine Color Urine Appearance Urine pH Ur Specific [place] Urine Protein Urine Glucose (UA) Urine Ketones Urine Blood Urine Nitrite Ur Leukocyte Esterase Stl C. cayetanensis PCR Stool Rotavirus A PCR Stl Adenov F 40/41 PCR Stool Astrovirus (PCR) Stool Campylobacter PCR Stool Cryptosporidium PCR Stl Sh Tox Pr E STEC PCR Stool E coli O157 PCR Stl Enterotoxigenic E PCR Stool EPEC (PCR) Stool EAEC (PCR) Stl E. histolytica PCR Stool Giardia Lamblia PCR Stl P. shigelloides PCR Stool Salmonella PCR Stool Sapovirus (PCR) Stl Shigella/EIEC PCR St Y.enterocolitica PCR Stool Vibrio (PCR) Stl Vibrio cholerae PCR Stl Norovirus GI/GII PCR Urine Opiates Screen Ur Buprenorphine Scrn Ur Oxycodone Screen Urine Methadone Screen Urine Fentanyl Screen Ur Barbiturates Screen Ur Phencyclidine Scrn Ur Amphetamines Screen U Benzodiazepines Scrn Urine Cocaine Screen U Marijuana (THC) Screen C. difficile Tox B Gene Assessment and Plan (1) Nausea & vomiting: Status: Acute (2) Colitis: Status: Acute Assessment and Plan: 54-year-old male with a PMH significant for diverticulitis with abscess s/p colectomy in 2018 not on home meds who presents to the ED with?nausea, vomiting, diarrhea, and abdominal pain since early this morning. Pt will be admitted to the hospital for treatment and further evaluation of possible colitis meeting SIRS criteria. colitis possile norovirus related diffuse abdominal pain seems somewhat improving CT showing small bowel ileus pattern without obstruction, appendicitis, or diverticulitis Leukocytosis improving, blood culture negative at 24 hours-preliminary C diff negative, gastrointestinal panel shows: Norovirus positive and EAEC Patient is still unable to tolerate diet: Continue IV fluid, trial of clear liquid diet, pain management, antiemetics.consider deecalating antibiotics if blood cultures negative @48hrs Acute lactic acidosis: Since patient clinically somewhat improving, still further trending. Full Code DVT Prophylaxis: Low risk- Ambulation Ongoing need l for treatment of?possible colitis vs norvirus diarrahae -unable to tolerate diet,will be treated with empiric IV antibiotics, IV analgesics, and IV antiemetics. Quality Stroke Does the patient have a stroke diagnosis?: No VTE Prior VTE?: No VTE Risk Level:: Medical - moderate - high VTE Device Contraindication: Treatment Not Indicated VTE Drug Contraindication: N/A - Med Ordered
--- NOTE | 2024-12-28 16:33 | MHC.CM.PN ---
PT REPORTS HE LIVES WITH HIS AND IS INDEPENDENT WITH CARE HE HAS NO DME AND NO SERVICES PT REPORTS HE IS NOT INTERESTED IN COMPLETING A HCP PCP: MAI FULLER DCP: HOME NO SERVICES TO TRANSPORT
[2024-12-28] MEDS: Atorvastatin Calcium 40 MG TABLET PO (20:43)
[2024-12-28] MEDS: Ketorolac Tromethamine 15 MG/ML VIAL IVPUSH (20:43)
[2024-12-29] VITALS: BP 130/76; PULSE 68; RESP 18; TEMP 36.8; O2SAT 95
[2024-12-29 04:00] VITALS: BP 131/76; PULSE 73; RESP 18; TEMP 36.3; O2SAT 96
[2024-12-29] MEDS: Omeprazole 20 MG CAPSULE.DR PO (06:02)
[2024-12-29] MEDS: Dextrose 5 % and 0.9 % NaCl 1,000 ML 80 ML IVCONT (06:03)
[2024-12-29 07:46] VITALS: BP 132/70; PULSE 77; RESP 16; TEMP 36.8; O2SAT 95
--- NOTE | 2024-12-29 10:29 | P.DS_ITS ---
DS: Providers Provider Date of Service: 12/29/24 Date of admission: 12/27/24 17:55 Date of discharge: 12/29/24 Primary care physician: Leonarda Chung MD Attending physician on discharge: Marcelino Meza Discharging clinician: Marcelino Meza DS: Diagnosis Discharge Diagnosis (1) Nausea & vomiting: Status: Acute (2) Colitis: Status: Acute DS: Summary Hospital Course Hospital Course: HPI: Hospital course: Patient came to the hospital with abdominal pain nausea vomiting , significant diarrhea, Unable to eat: admitted for possible colitis - Further workup revealed leukocytosis, also CT abdomen showed Small bowel ileus pattern. No obstruction or ascites.: Patient is having diarrhea so ileus is less likely, patient was started on IV antibiotics, blood cultures sent, placed on bowel rest and IV fluids. Testing for GI workup: C diff negative, GI panel showed: Positive for norovirus , also positive for EAEC. discussed with dr nelson -does not need antibiotics for Eaec or norovirus since likley viral (norovirus diarrhae) -quick onset and resolution of symptoms ,blood cultures neg@24hrs. patient final dignosis -norovirus gasteroentritis as well as likely colitis also. ct abd incidentall-?cysitis , but ua negative and patient denies urinary c/o. mild elevated bilirubin /liver enzymes : likely inthe seetting of viral infecti on abd us seems fine follow lft's outpatient. Acute lactic acidosis-secondary to dehydration in the setting of diarrhea, since patient's symptoms are improving no further trending of lactic acid. With above supportive care patient improved to be significantly, leukocytosis resolving, no fever, tolerating diet. Blood culture negative at 24:00 hours Patient will be going home. plan: Encouraged for soft diet bland, avoid outside foods and fried foods for at least a week or so. Strongly encouraged for hydration also follow lft's outpatient. Time Attestation Total time managing care of this patient today: 40 mintues. Discharge Coordination Time (in mins): 40 min Quality: Safe Use of Opioids Does Pt have an Active Cancer Diagnosis on the Problem List?: No Quality: Stroke Does the patient have a stroke diagnosis?: No Physical Exam Vital Signs: Vital Signs: Last Vital Signs Temp 98.2 F 12/29/24 07:46 Pulse 77 12/29/24 07:46 Resp 16 12/29/24 07:46 BP 132/70 12/29/24 07:46 Pulse Ox 95 12/29/24 07:46 O2 Del Method Room Air 12/29/24 07:46 BMI result Body Mass Index 30.9 Appearance: Alert.? Oriented X3.? cvs: rrr, [id number]. res: clear to auscultation ,no rhonchii or wheezing abd:soft,nd ,nt, bs present. ext pulses present , no cyanosis . neuro: axo3 , nonfocal. DS: Data Data Completed and Pending Labs on day of discharge: Laboratory Results - last 24 hr 12/27/24 17:27 Stl C. cayetanensis PCR Not Detected Stool Rotavirus A PCR Not Detected Stl Adenov F 40/41 PCR Not Detected Stool Astrovirus (PCR) Not Detected Stool Campylobacter PCR Not Detected Stool Cryptosporidium PCR Not Detected Stl Sh Tox Pr E STEC PCR Not Detected Stool E coli O157 PCR Not applicable Stl Enterotoxigenic E PCR Not Detected Stool EPEC (PCR) Not Detected Stool EAEC (PCR) Detected A Stl E. histolytica PCR Not Detected Stool Giardia Lamblia PCR Not Detected Stl P. shigelloides PCR Not Detected Stool Salmonella PCR Not Detected Stool Sapovirus (PCR) Not Detected Stl Shigella/EIEC PCR Not Detected St Y.enterocolitica PCR Not Detected Stool Vibrio (PCR) Not Detected Stl Vibrio cholerae PCR Not Detected Stl Norovirus GI/GII PCR Detected A Preliminary micro results at discharge 12/27/24 14:03 Blood Culture - Preliminary Blood - Venous No growth after 24 hours. 12/27/24 13:48 Blood Culture - Preliminary Blood - Venous No growth after 24 hours. Imaging Chest x-ray: Radiologist's impression: abd us: 1. No cholelithiasis or acute cholecystitis. 2. No significant biliary ductal dilatation. ct abd: 1. Small bowel ileus pattern. No obstruction or ascites. 2. No acute appendicitis. 3. No acute obstructive uropathy. Nonobstructing bilateral nephrolithiasis, right greater than left. 4. Diverticulosis coli with no evidence for acute diverticulitis. 5. Mild localized perivesical edema for which the possibility of mild/early cystitis is raised. Recommend clinical correlation. Discharge Plan Discharge Anticipated Discharge Date/Time: 12/29/24 10:18 Patient Disposition: Home, Self-Care Discharge Diagnosis: Norovirus gastroenteritis Referrals: Leonarda Chung MD [Primary Care Provider] - 1 Week Discharge Medications: Continued atorvastatin 80 mg tablet 40 mg PO BEDTIME nicotine 21 mg/24 hr Patch 24 Hour 1 patch TRANSDERMAL DAILY PRN (Reason: Smoking Cessation) omeprazole 20 mg Capsule,Delayed Release(Dr/Ec) 20 mg PO DAILY@0630 testosterone cypionate 200 mg/mL oil 60 mg IM TH varenicline tartrate 0.5 mg tablet See Rx Instructions .ROUTE .COMPLEX Rx Instructions: take 1 tablet by mouth daily for 3 days, Then take 1 tablet BID for 4 days, Then take 2 tablets daily for 30 days Discharge Orders: Discharge Order (Routine); Ordered 12/29/24 Ordered By: Marcelino Meza Diet: Advance to usual diet Activity on Discharge: As tolerated Stand Alone Forms: Patient Portal Discharge page Print Language: Mohawk Other Ambulatory Orders: Liver Panel (Routine) Timeframe: 1 Week Facility: [facility] - Location: Laboratory Ordered By: Marcelino Meza Care Plan Goals: Patient came to the hospital with abdominal pain nausea vomiting , significant diarrhea, Unable to eat: Further workup revealed leukocytosis, also CT abdomen showed Small bowel ileus pattern. No obstruction or ascites.: Patient is having diarrhea so ileus is less likely, patient was started on IV antibiotics, blood cultures sent, placed on bowel rest and IV fluids. Testing for GI workup: C diff negative, GI panel showed: Positive for norovirus. With above supportive care patient improved to be significantly, leukocytosis resolving, no fever, tolerating diet. Blood culture negative at 24:00 hours. mild elevated bilirubin /liver enzymes : likely inthe seetting of viral infection abd us seems fine follow lft's outpatient. Patient will be going home. Health Concerns: As above. Encouraged for soft diet bland, avoid outside foods and fried foods for at least a week or so. Strongly encouraged for hydration also follow lft's outpatient. Follow-up with PCP. Plan of Treatment: As above. Assessment: As above. Patient Instructions: Acute Nausea and Vomiting (DC), Acute Diarrhea (GEN)
--- NOTE | 2024-12-29 10:46 | MHC.CM.PN ---
pt dcd home self care
== END 2024-12-29 11:21 | disposition home or self-care (01) | DRG 392 ==
LOC: HO.ED 17:14 → HO.EDOVER 18:07 → HO.S3 12-28 08:05
PROVIDERS: Physician Assistant; Physician Assistant Medical; Admitting Provider Student in an Organized Health Care Education/Training Program; Emergency Provider Emergency Medicine; PCP Family Medicine; Visit Provider Internal Medicine
DX: A08.11 Acute gastroenteropathy due to Norwalk agent (principal); E87.21 Acute metabolic acidosis; A04.0 Enteropathogenic Escherichia coli infection; E86.0 Dehydration; Z20.822 Contact with and (suspected) exposure to COVID-19; Z79.899 Other long term (current) drug therapy
CPT/HCPCS: 0241U; 36415; 74176; 76705; 80048; 80053; 80307; 81003; 82248; 83605; 83690; 85025; 85027; 87040; 87493; 87507; 99285; J1885; J2270; J2405; J2543; J7120

== ENCOUNTER → 2024-12-27 13:18 | Outpatient (BNV) | payer OTHER, SELFPAY | PROVIDERS: Emergency Provider Emergency Medicine; PCP Family Medicine; Visit Provider Radiology Diagnostic Radiology | DX: K57.30 Diverticulosis of large intestine without perforation or abscess without bleeding (principal); N20.0 Calculus of kidney; K56.7 Ileus, unspecified; R10.11 Right upper quadrant pain; R11.2 Nausea with vomiting, unspecified; R19.7 Diarrhea, unspecified | CPT/HCPCS: 74176; 76705 ==

== ENCOUNTER → 2024-12-27 17:55 | Outpatient (BNV) | payer OTHER, SELFPAY | PROVIDERS: Admitting Provider Student in an Organized Health Care Education/Training Program; Emergency Provider Emergency Medicine; PCP Family Medicine; Visit Provider Student in an Organized Health Care Education/Training Program | DX: R11.2 Nausea with vomiting, unspecified (principal); K52.9 Noninfective gastroenteritis and colitis, unspecified | CPT/HCPCS: 99239 ==